=== PATIENT | male | born 1965 | race Caucasian/White ===

== ENCOUNTER → 2021-07-17 | Outpatient (CLI) | payer BC ==
[~2021-07-17] MED LIST: BACTRIM DS TAB1 EACH PO; NORCO 5-325 TA1 EACH PO
[2021-07-17 11:01] LABS: BUN/CREATININE RATIO 11 (0-10)
== END ==
LOC: LAB 09:48
PROVIDERS: Internal Medicine Nephrology
DX: E87.1 Hypo-osmolality and hyponatremia (principal)
CPT/HCPCS: 36415; 80053; 82436; 84133; 84300